=== PATIENT | female | born 1995 | race Caucasian/White ===

== ENCOUNTER 2016-08-07 23:13 | Emergency (ER) | payer OTHER ==
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
[~2016-08-07 23:13] MED LIST: FLEXERIL10 MG PO; VOLTAREN75 MG PO
== END 2016-08-08 01:08 | disposition home or self-care (01) ==
LOC: SED 23:13
DX: S02.2XXA Fracture of nasal bones, initial encounter for closed fracture (principal); S00.83XA Contusion of other part of head, initial encounter; S60.022A Contusion of left index finger without damage to nail, initial encounter; S60.021A Contusion of right index finger without damage to nail, initial encounter; S80.11XA Contusion of right lower leg, initial encounter; S80.12XA Contusion of left lower leg, initial encounter; F17.210 Nicotine dependence, cigarettes, uncomplicated; W22.8XXA Striking against or struck by other objects, initial encounter; Y92.009 Unspecified place in unspecified non-institutional (private) residence as the place of occurrence of the external cause
CPT/HCPCS: 70486; 72040; 72072; 73110; 73140; 99284

== ENCOUNTER 2016-12-16 11:28 | Emergency (ER) | payer OTHER ==
[~2016-12-16] VITALS: Ht 162.6 cm; Wt 56.7 kg
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
== END 2016-12-16 13:20 | disposition home or self-care (01) ==
LOC: CED 11:28 → CFTX 11:28
DX: R68.84 Jaw pain (principal); F17.210 Nicotine dependence, cigarettes, uncomplicated; Z79.899 Other long term (current) drug therapy
CPT/HCPCS: 70110; 99283